=== PATIENT | male | born 1990 | race Asian ===

== ENCOUNTER 2018-06-06 00:17 | Emergency (ER) | payer OTHER ==
[~2018-06-06] VITALS: Ht 195.6 cm; Wt 59.0 kg
[2018-06-06] MEDS ORDERED: CEFADROXIL500 MG PO (03:57)
[2018-06-06] MEDS ORDERED: ZYNCOF 20-400120 ML PO (03:57)
== END 2018-06-06 14:08 ==
LOC: ER 00:17
DX: J06.9 Acute upper respiratory infection, unspecified (principal)